=== PATIENT | male | born 1985 | race Caucasian/White ===

== ENCOUNTER 2019-05-05 18:19 | Inpatient (IN) ==
[2019-05-05] MEDS ORDERED: 0.9 % Sodium Chloride 1,000 ML IVC ONE (18:37)
[2019-05-05] MEDS ORDERED: Ondansetron 4 MG/2 ML VIAL IVP ONE (18:37)
[2019-05-05] MEDS ORDERED: *HR* HYDROmorphone (PF) 1 MG/ML SYRINGE IVP ONE (18:38)
[2019-05-05 18:46] LABS: Bilirubin,Urine Small (Negative); Blood,Urine Negative (Negative); Clarity,Urine Clear (Clear); Color,Urine Dark Yellow (Yellow); Glucose,Urine (UA) Normal (Normal); Ketones,Urine 15 mg/dL (Negative); Leukocyte Esterase,Urine Negative (Negative); Nitrite,Urine Negative (Negative); PH,Urine 6.5 pH Units (5.0-8.0); Protein,Urine 30 mg/dL (Neg-Trace); Specific Gravity,Urine > 1.030 (1.010-1.025); Urobilinogen,Urine Normal (Normal)
[2019-05-05 18:47] LABS: Bacteria,Urine None Seen per hpf (None-Few); Hyaline Casts,Urine None Seen per lpf (None-Few); RBC,Urine 0-3 per hpf (0-3); Squamous Epithelial Cell,Urine Moderate per lpf (None-Few); WBC,Urine 0-3 per hpf (0-3)
[2019-05-05 20:00] LABS: Basophils % 0.2 %; Hematocrit 50.3 % (37.5-50.1); Hemoglobin 16.5 g/dL (12.9-16.9); Immature Granulocytes % 0.5 % (0-4); Lymphocytes # 1.7 K/mcL (0.6-4.6); Lymphocytes % 8.1 %; Mean Corpuscular HGB Conc 32.8 g/dL (31.6-35.5); Mean Corpuscular Hemoglobin 29.4 pg (28.0-33.3); Mean Corpuscular Volume 89.5 fL (83.0-100.0); Mean Platelet Volume 11.8 fL (9.4-12.4); Monocytes # 1.4 K/mcL (0.0-1.3); Monocytes % 6.7 %; Neutrophils # 17.7 K/mcL (1.6-8.9); Platelet Count 280 K/mcL (140-400); Red Blood Count 5.62 M/mcL (4.19-5.50); Red Cell Distribution Width 13.2 % (11.5-14.5); Segmented Neutrophils % 84.5 %; White Blood Count 20.9 K/mcL (4.3-11.1)
[2019-05-05 20:04] LABS: INR 1.1; Prothrombin Time 12.3 Seconds (9.4-12.1)
[2019-05-05 20:19] LABS: BUN/Creatinine Ratio 17 (6-26); Blood Urea Nitrogen 14 mg/dL (6-20); Calcium 9.8 mg/dL (8.6-10.3); Carbon Dioxide 29 mEq/L (23-29); Chloride 99 mEq/L (98-107); Glucose 135 mg/dL (70-105); Osmolality,Calculated 281 (280-300); Potassium 4.5 mEq/L (3.5-5.1); Sodium 134 mEq/L (136-145); eGFR For African Americans > 60 (> 60); eGFR For Non-African Americans > 60 (> 60)
[2019-05-05] MEDS ORDERED: Pantoprazole 40 MG VIAL IVP ONE (21:12)
[2019-05-05] MEDS ORDERED: Ondansetron 4 MG/2 ML VIAL IVP PRN (21:48)
[2019-05-05] MEDS ORDERED: Sucralfate 1 GM TABLET PO SCH (22:00)
[2019-05-06] MEDS ORDERED: Piperacillin/Tazobactam 3.375 GM in 0.9 % Sodium Chloride Mini Bag 100 ML IVPB SCH
[2019-05-06 01:36] LABS: Hematocrit 47.4 % (37.5-50.1); Hemoglobin 15.5 g/dL (12.9-16.9); Mean Corpuscular HGB Conc 32.7 g/dL (31.6-35.5); Mean Corpuscular Hemoglobin 29.6 pg (28.0-33.3); Mean Corpuscular Volume 90.5 fL (83.0-100.0); Mean Platelet Volume 12.3 fL (9.4-12.4); Platelet Count 251 K/mcL (140-400); Red Blood Count 5.24 M/mcL (4.19-5.50); Red Cell Distribution Width 13.2 % (11.5-14.5); White Blood Count 14.8 K/mcL (4.3-11.1)
[2019-05-06 02:01] LABS: BUN/Creatinine Ratio 17 (6-26); Blood Urea Nitrogen 12 mg/dL (6-20); Calcium 9.1 mg/dL (8.6-10.3); Carbon Dioxide 24 mEq/L (23-29); Chloride 100 mEq/L (98-107); Glucose 97 mg/dL (70-105); Osmolality,Calculated 278 (280-300); Potassium 4.7 mEq/L (3.5-5.1); Sodium 134 mEq/L (136-145); eGFR For African Americans > 60 (> 60); eGFR For Non-African Americans > 60 (> 60)
[2019-05-06] MEDS: 0.9 % Sodium Chloride 1,000 ML IVC SCH ×2 (05:29→05:31)
[2019-05-06] MEDS ORDERED: Pantoprazole 40 MG VIAL IVP SCH ×2 (06:00→18:00)
[2019-05-06] MEDS ORDERED: *HR* Heparin 5,000 UNIT/ML VIAL SQ SCH ×2 (06:00→18:00)
[2019-05-06] MEDS ORDERED: Ondansetron 4 MG/2 ML VIAL IVP PRN (06:36)
[2019-05-06] MEDS ORDERED: 0.9 % Sodium Chloride 1,000 ML IVC SCH (06:36)
[2019-05-06] MEDS ORDERED: *HR* LORazepam 2 MG/ML VIAL IVP PRN ×3 (08:29)
[2019-05-06] MEDS: Piperacillin/Tazobactam 3.375 GM in 0.9 % Sodium Chloride Mini Bag 100 ML IVPB SCH ×2 (08:43→15:39)
[2019-05-06] MEDS: Sucralfate 1 GM TABLET PO SCH ×3 (08:44→15:38)
[2019-05-06] MEDS ORDERED: Fluconazole 200 MG/100 ML 200 MG/100 ML BAG IVPB SCH ×2 (09:00)
[2019-05-06] MEDS ORDERED: Nicotine 21 MG PATCH.TD24 TD SCH ×2 (09:00)
[2019-05-06 14:28] VITALS: BP 153/102
[2019-05-06] MEDS ORDERED: Thiamine (B-1) 100 MG, Folic Acid 1 MG, MVI, adult with vitamin K 10 ML in 0.9 % Sodi... IVPB SCH (18:00)
== END 2019-05-06 18:22 | disposition left against medical advice (07) | DRG 241 ==
LOC: EMEROOARM 18:19 → 3ANU 18:19
PROVIDERS: ADMIT Internal Medicine; ATTEND Surgery